=== PATIENT | female | born 2000 | race Caucasian/White ===

== ENCOUNTER 2025-04-04 19:26 | Inpatient (IN) | payer OTHER, SELFPAY ==
--- NOTE | ~2025-04-04 | CT_ITS ---
CLINICAL HISTORY: Right lower quadrant pain? Acute appendicitis CT abdomen and pelvis with contrast Comparison: None provided Findings: No consolidation or effusion. The liver, gallbladder, spleen, pancreas, kidneys and adrenal glands are normal in appearance. No bowel obstruction, pneumoperitoneum, or pneumatosis. The appendix is hyperemic and enlarged measuring 8 mm in diameter. There is periappendiceal stranding. The appendix is located in the right lower quadrant, series 3, image 60. Uterus and adnexa are normal. Urinary bladder is decompressed. No ascites. No evidence of abscess. The bones are intact. IMPRESSION: Acute uncomplicated appendicitis. This document has been electronically signed by: Ted Patel MD on 04/04/2025 22:07:57
--- NOTE | 2025-04-04 19:32 | ED.ABDPAIN ---
HPI - Abdominal Pain General Stated Complaint: right lwr abd pain Course Course Course Narrative: This is an RME performed by Patt Perrin CNP: Additional HPI, ROS, PE not included below will be deferred to primary provider. patient is a 24-year-old female who presents emergency department for evaluation, she had onset of right lower quadrant abdominal pain yesterday but is progressively worse today and more intense and 05:00. has associated nausea but no vomiting. Denies pelvic pain, abnormal vaginal discharge or bleeding. Denies dysuria, urinary frequency/ urgency /hesitancy Plan: Serum labs, urinalysis, hCG
[2025-04-04 19:35] VITALS: BP 155/99; PULSE 113; RESP 20; TEMP 36.1; O2SAT 98; BMI 33.3
[2025-04-04 19:57] LABS: Hematocrit 39.4 % (37.0-47.0); Hemoglobin 13.2 g/dl (12.0-16.0); Imm Gran Abs Auto 0.04 X10*3/uL (0.00-0.03); Imm Gran Pct Auto 0.3 % (0.0-0.4); Lymphocytes Absolute Auto 4.5 X10*3/uL (1.2-4.9); MANUAL DIFF FLAG SCAN; Mean Corpuscular HGB Conc 33.5 g/dl (31.0-35.0); Mean Corpuscular Hemoglobin 28.8 pg (27.0-33.0); Mean Corpuscular Volume 85.8 fL (80.0-98.0); NRBC Abs Auto 0.000 X10*3/uL (0.0-0.012); NRBC Pct Auto 0.0 /100WBC (0.0-0.2); Platelet Count 341 X10*3/uL (160-400); Red Blood Count 4.59 X10*6/uL (4.20-5.50); SCAN SMEAR FLAG 1; White Blood Count 16.0 X10*3/uL (4.8-10.8)
[2025-04-04 20:10] VITALS: BP 129/65; PULSE 85; RESP 16; TEMP 36.9; O2SAT 98
[2025-04-04 20:18] LABS: Alanine Aminotransferase 17 U/L (0-31); Albumin Level 4.7 g/dL (3.5-5.0); Alkaline Phosphatase 70 U/L (39-117); Anion Gap 12 (12-20); Aspartate Amino Transferase 21 U/L (5-31); Blood Urea Nitrogen 11 mg/dL (9-16); Calcium 9.2 mg/dL (8.4-10.2); Carbon Dioxide 23 mmol/L (22-29); Chloride 109 mmol/L (96-108); Creatinine Clr Calc Pharmacy 102.4; Estimated Glomerular Filt Rate > 60; Lipase 16 U/L (8-78); Potassium 3.9 mmol/L (3.3-5.1); Sodium 140 mmol/L (135-145); Total Protein 7.3 g/dL (6.5-8.0)
[2025-04-04 20:34] LABS: Appearance Urine Clear; Glucose Urine UA Negative (Negative); PH 7.0 (5.0-9.0); Specific Gravity - Urine >= 1.030 (1.005-1.025)
[2025-04-04] MEDS: iohexoL 350 MG/ML 100 ML INFUS..BTL 85 ML IV (21:24)
--- NOTE | 2025-04-04 22:13 | ED_ITS ---
HPI - Abdominal Pain General Chief Complaint: Abdominal Pain Stated Complaint: right lwr abd pain Time Seen by Provider: 04/04/25 20:32 Source: patient Mode of arrival: ambulatory Limitations: no limitations History of Present Illness ED Provider: HPI narrative: Patient with no significant past medical history apparently noticed right-sided pain since yesterday evening gradual onset got worse earlier today especially while coming to the ER bumps on the road made the pain worse had some nausea no vomiting no fever no chills no urinary symptoms no history of gallstones no history of similar pain in the past no history of ovarian cyst Related Data Allergies Allergy/AdvReac Type Severity Reaction Status Date / Time No Known Allergies Allergy Verified 04/04/25 19:37 Review of Systems Review of Systems Yes all other systems are reviewed and are negative [facility] Social History Social History Smoked in Last 30 Days: No Use of substances other than those prescribed or required for medical reasons: No Advance Directives: No Advance Directives Information Provided: No Do you have a plan to hurt others: No Plan Physical Exam ED Vital Signs: Vital Signs - 24 hr 04/04/25 19:35 04/04/25 20:10 Temperature 97.0 F 98.4 F Pulse Rate 113 H 85 Respiratory Rate 20 16 Blood Pressure 155/99 H 129/65 Pulse Oximetry 98 98 Oxygen Delivery Method Room Air Room Air BMI result Body Mass Index 33.3 Appearance: Alert. Oriented X3. No acute distress. Eyes: No pallor or icterus ENT: Pharynx normal. Oral Mucosa moist Neck: Normal inspection. Neck supple. CVS: Normal heart rate and rhythm. Pulses normal. Respiratory: No respiratory distress. Equal air entry bilateral, no wheezing/rales/rhonchi Abdomen: Soft and deep tenderness right lower quadrant with guarding no rebound tenderness. Bowel sounds are present, no mass palpable, no CVA tenderness Skin: Skin warm and dry. Normal skin color. Normal skin turgor. Extremities: No lower extremity edema. No calf tenderness Neuro: Oriented X 3. No motor deficit. Medical Decision Making Medical Decision Making [facility] Narrative: Patient has acute onset of right lower quadrant pain clinically appendicitis CT scan confirmed uncomplicated appendicitis case discussed surgeon Dr. Roth will plan for surgery in a.m. patient's will be given IV Zosyn pain control and IV fluids Differential Diagnosis Differential Diagnoses: The differential diagnosis associated with the presentation includes Acute appendicitis/cholecystitis/diverticulitis/ovarian cyst Admission/Observation Consideration of admission/observation: Escalation of care including admission/observation considered Consult Healthcare Provider Management of the patient was discussed with: [employer] Lab Data MDM Lab Attestation statement: I reviewed the patient's lab results. 04/04/25 19:52 04/04/25 19:52 Labs: Lab Results 04/04/25 04/04/25 Range/Units 19:52 20:22 WBC 16.0 H (4.8-10.8) X10*3/uL RBC 4.59 (4.20-5.50) X10*6/uL Hgb 13.2 (12.0-16.0) g/dl Hct 39.4 (37.0-47.0) % MCV 85.8 (80.0-98.0) fL MCH 28.8 (27.0-33.0) pg MCHC 33.5 (31.0-35.0) g/dl RDW 14.4 (11.0-16.0) % Plt Count 341 (160-400) X10*3/uL MPV 10.9 (9.4-12.3) fL Immature Gran % (Auto) 0.3 (0.0-0.4) % Neut % (Auto) 60.5 (45-73) % Lymph % (Auto) 28.3 (20-40) % [place] % (Auto) 9.4 (2-11) % Eos % (Auto) 1.2 (0-4) % Baso % (Auto) 0.3 (0-2) % Lymph # (Auto) 4.5 (1.2-4.9) X10*3/uL [place] # (Auto) 1.5 H (0.1-1.2) X10*3/uL Eos # (Auto) 0.2 (0.0-0.4) X10*3/uL Baso # (Auto) 0.0 (0.0-0.2) X10*3/uL Abs Immat Gran (auto) 0.04 H (0.00-0.03) X10*3/uL Absolute Neuts (auto) 9.7 H (2.0-8.3) x10*3/uL Absolute Nucleated RBC 0.000 (0.0-0.012) X10*3/uL Nucleated RBC % (auto) 0.0 (0.0-0.2) /100WBC Smear Tech's Comments VERIFIED Sodium 140 (135-145) mmol/L Potassium 3.9 (3.3-5.1) mmol/L Chloride 109 H (96-108) mmol/L Carbon Dioxide 23 (22-29) mmol/L Anion Gap 12 (12-20) BUN 11 (9-16) mg/dL Creatinine 0.74 (0.5-1.4) mg/dL Estim Creat Clear Calc 102.4 Estimated GFR > 60 Random Glucose 98 (60-115) mg/dL Calcium 9.2 (8.4-10.2) mg/dL Total Bilirubin 0.4 (0.0-1.0) mg/dL AST 21 (5-31) U/L ALT 17 (0-31) U/L Alkaline Phosphatase 70 (39-117) U/L C-Reactive Protein 1.62 H (< or = 0.50) mg/dL Total Protein 7.3 (6.5-8.0) g/dL Albumin 4.7 (3.5-5.0) g/dL Lipase 16 (8-78) U/L Beta HCG, Quant < 2 mIU/mL Urine Color Yellow Urine Appearance Clear Urine pH 7.0 (5.0-9.0) Ur Specific [place] >= 1.030 H (1.005-1.025) Urine Protein Negative (Neg-Trace) mg/dL Urine Glucose (UA) Negative (Negative) mg/dL Urine Ketones Trace (Negative) mg/dL Urine Blood Negative (Negative) Urine Nitrite Negative (Negative) Ur Leukocyte Esterase Negative (Negative) Radiology Impression Discussion of test interpretation with radiology: I have reviewed the radiologist's reading. Radiologist Impression: [address] [address] [address] Scan Report Signed with Beth Patient: Meryl Shannon MR#: [id number] : 2000 Acct:[id number] Age/Sex: 24 / F ADM Date: 04/04/25 Loc: .ED Attending Dr: Ordering Physician: Chan Salinas MD Date of Service: 04/04/25 Procedure(s): CT abdomen pelvis w IV con Accession Number(s): [id number] cc: Larissa Suarez DO; Chan Salinas MD~ Report Number: [id number]: Total DLP = 603.00 mGy-cm ADDENDUMThis document has been electronically signed by: Ted Patel MD on 04/04/2025 22:07:57 ADDENDUM: This report was discussed with Chan Salinas on Apr 04, 2025 22:10:00 EDT. This document has been electronically signed by: Madelaine Viera on 04/04/2025 22:10:23 Addendum Dictated By: Ted Patel MD Addendum Signed By: <Electronically signed by Ted Patel MD in [place]> 04/04/252210 Addendum Cosigned By: DD/ /29/2206 TD/TT: 04/04/2510/29/2209 CLINICAL HISTORY: Right lower quadrant pain? Acute appendicitis CT abdomen and pelvis with contrast Comparison: None provided Findings: No consolidation or effusion. The liver, gallbladder, spleen, pancreas, kidneys and adrenal glands are normal in appearance. No bowel obstruction, pneumoperitoneum, or pneumatosis. The appendix is hyperemic and enlarged measuring 8 mm in diameter. There is periappendiceal stranding. The appendix is located in the right lower quadrant, series 3, image 60. Uterus and adnexa are normal. Urinary bladder is decompressed. No ascites. No evidence of abscess. The bones are intact. IMPRESSION: Acute uncomplicated appendicitis. This document has been electronically signed by: Ted Patel MD on 04/04/2025 22:07:57 Medications Administered Generic Name Dose Route Start Last Admin Trade Name Freq PRN Reason Stop Dose Admin Sodium Chloride 1,000 mls @ 100 mls/hr 04/04/25 22:45 04/04/25 23:32 Ns IVCONT 100 mls/hr .Q10H DOMINGUEZ Administration Sodium Chloride 3 ml 04/05/25 00:00 04/05/25 00:09 0.9 % Sodium Chloride Flush 3 Ml Syringe IVFLUSH Not Given QSHIFT DOMINGUEZ Discontinued Medications Generic Name Dose Route Start Last Admin Trade Name Freddy PRN Reason Stop Dose Admin Sodium Chloride 1,000 mls @ 999 mls/hr 04/04/25 20:47 04/04/25 23:32 Ns IV 04/04/25 21:47 Infused .Q1H1M ONE Infusion Piperacillin Sod/Tazobactam 50 mls @ 100 mls/hr 04/04/25 22:10 04/04/25 23:05 Sod 3.375 gm/ Sodium Chloride IV 04/04/25 22:39 Infused ONCE ONE Infusion Iohexol 85 ml 04/04/25 21:24 04/04/25 21:24 Iohexol 350 Mg/Ml 100 Ml Infus..Btl IV 04/04/25 21:25 85 ml ONCE ONE Administration Morphine Sulfate 4 mg 04/04/25 20:47 04/04/25 21:34 Morphine Sulfate 4 Mg/Ml Cartridge IVPUSH 04/04/25 20:48 4 mg ONCE ONE Administration Protocol Ondansetron HCl 4 mg 04/04/25 20:47 04/04/25 21:34 Ondansetron Hcl 4 Mg/2 Ml Vial IVPUSH 04/04/25 20:48 4 mg ONCE ONE Administration Discharge Plan Discharge Clinical Impression: Acute appendicitis Patient Disposition: Admitted As Inpatient
--- NOTE | 2025-04-04 22:33 | PC.NURSE ---
per MD no blood cultures.
[2025-04-05] VITALS (13 sets, daily range): BP systolic 92–122; BP diastolic 46–69; PULSE 64–93; RESP 0–18; TEMP 36.1–36.7; O2SAT 95–100; BMI 38.0
--- NOTE | 2025-04-05 05:15 | PC.NURSE ---
report given to overflow bren Paul. pt awaiting transport.
--- NOTE | 2025-04-05 05:47 | PC.NURSE ---
Patient transferred to overflow bed 2 at 0530 with asphalt plant laborer at bedside. Patient reports being NPO since midnight. IVF infusing. Offers no complaints. All needs in reach.
--- NOTE | 2025-04-05 07:34 | P.HPGS_ITS ---
History of Present Illness History of Present Illness Date of Service: 04/05/25 Chief complaint: abdominal pain Narrative: Meryl Shannon is a generally healthy 24 year old female presenting to the Ed with a 1 day history of RLQ abdominal pain. Patient states the pain started as a dull pain that continuing to increase throughout the day. States the pain was a 9 out of 10 and worsened with movement. States she has associated nausea and decreased appetite. Denies fever, chills, vomiting, constipation, diarrhea. Denies history of similar symptoms before. She had a CT scan, showing a dilated appendix with associated inflammatory changes. No evidence of abscess or perforation. WBC is increased, at 16. Patient was started on IV fluids, zosyn, and was made NPO. Pain is currently better controlled, states improvement in pain and nausea after medications. Pain now 7/10 but still feels uncomfortable. She denies any current medications, denies history of surgery. Admits to marijuana and nicotine vape use. Denies alcohol or other recreational drug use. Review of Systems Review of Systems: Yes all other systems are reviewed and are negative [facility] Social History Social History Household Members: Significant Other Housing: House Do you presently have visiting nurse or other home services: No Patient Tobacco Use Status: Never used Tobacco Smoked in Last 30 Days: No e-Cigarette/Vaping Use: Currently Using Frequency of e-Cigarette/Vaping Use: 10-15 puffs from vape a day Patient Interested in Nicotine Replacement: No Patient Given Instructions on How to Stop Smoking: No (not interested) Second Hand Smoke Exposure: No Use of substances other than those prescribed or required for medical reasons: No Have you been hit, kicked, punched, or otherwise hurt by someone within the past year? If so, by whom?: No Do you feel safe in your current relationship?: Yes Is there a partner from a previous relationship who is making you feel unsafe now?: No Are you made to feel afraid or neglected: No Advance Directives: No Advance Directives Information Provided: No Do you have a plan to hurt others: No Plan Recently lost weight without trying: No How much weight loss: Not applicable Eating poorly because of decreased appetite: No Nutrition screen score: 0 Nutrition Risks: No Nutritional Risk Patient : No : No Poor oral hygiene: No Meds Allergies Allergy/AdvReac Type Severity Reaction Status Date / Time No Known Allergies Allergy Verified 04/04/25 19:37 Active Medications: Current Medications Acetaminophen (Acetaminophen 325 Mg Tablet) 650 mg PO Q6H PRN PRN Reason: Pain, Mild 1-3,fever,headache Calcium Carbonate (Calcium Carbonate 750 Mg Tab.Chew) 750 mg PO Q4H PRN PRN Reason: Heartburn Sodium Chloride (Ns) 1,000 mls @ 100 mls/hr IVCONT .Q10H [facility] Last Admin: 04/04/25 23:32 Dose: 100 mls/hr Magnesium Hydroxide (Milk Of Magnesia 30 Ml Oral.Susp) 30 ml PO DAILY PRN PRN Reason: Constipation Melatonin (Melatonin 3 Mg Tablet) 6 mg PO BEDTIME PRN PRN Reason: Insomnia Morphine Sulfate (Morphine Sulfate 10 Mg/Ml Cartridge) 4 mg IVPUSH Q4H PRN; Protocol PRN Reason: Pain, Severe (Pain Scale 7-10) Last Admin: 04/05/25 01:37 Dose: 4 mg Ondansetron HCl (Ondansetron Hcl 4 Mg/2 Ml Vial) 4 mg IVPUSH Q8H PRN PRN Reason: Nausea and Vomiting Last Admin: 04/05/25 06:18 Dose: 4 mg Sodium Chloride (0.9 % Sodium Chloride Flush 3 Ml Syringe) [facility] Last Admin: 04/05/25 00:09 Dose: Not Given Home Medications ?Medication ?Instructions ?Recorded ?Confirmed ?Last Taken ?Type acetaminophen 500 mg tablet 1,000 mg PO Q6H PRN Pain 0 04/05/25 04/05/25 04/04/25 History 500 mg Physical Exam Vital Signs: Vital Signs: Last Vital Signs Temp 97.1 F 04/05/25 05:41 Pulse 82 04/05/25 05:41 Resp 16 04/05/25 05:41 BP 111/55 L 04/05/25 05:41 Pulse Ox 100 04/05/25 05:41 O2 Del Method Room Air 04/05/25 05:41 BMI result Body Mass Index 33.3 Const: General: no acute distress; No comfortable Orientation/consciousness: patient oriented x3 Resp: Effort & Inspection: normal respiratory effort and able to speak in complete sentences GI: Inspection: Yes normal to inspection and No distended Palpation (GI): Soft to palpation, not firm, Tenderness to palpation present (GI) in the RLQ, at McBurney's point, with rebound tenderness and Rovsing's sign positive, no guarding and not rigid Neuro: General: patient oriented x3 Results Results Labs: Short CBC 04/04/25 Range/Units 19:52 WBC 16.0 H (4.8-10.8) X10*3/uL Hgb 13.2 (12.0-16.0) g/dl Hct 39.4 (37.0-47.0) % Plt Count 341 (160-400) X10*3/uL BMP 04/04/25 19:52 Sodium 140 Potassium 3.9 Chloride 109 H Carbon Dioxide 23 BUN 11 Creatinine 0.74 Calcium 9.2 Liver Function 04/04/25 Range/Units 19:52 Total Bilirubin 0.4 (0.0-1.0) mg/dL AST 21 (5-31) U/L ALT 17 (0-31) U/L Alkaline Phosphatase 70 (39-117) U/L Albumin 4.7 (3.5-5.0) g/dL Urine 04/04/25 Range/Units 20:22 Urine Color Yellow Urine Appearance Clear Urine pH 7.0 (5.0-9.0) Ur Specific [place] >= 1.030 H (1.005-1.025) Urine Protein Negative (Neg-Trace) mg/dL Urine Glucose (UA) Negative (Negative) mg/dL Assessment and Plan (1) Acute appendicitis: Qualifiers: Acute appendicitis type: with localized peritonitis Appendicitis abscess presence: without abscess Appendicitis gangrene presence: without gangrene Appendicitis perforation presence: without perforation Qualified Code(s): K35.30 - Acute appendicitis with localized peritonitis, without perforation or gangrene Status: Acute Plan 24 year old generally healthy female presenting to the ED with a 1 day history of RLQ abdominal pain that increased throughout the day. Patient has associated nausea and decreased appetite. ON imaging, patient was found to have a dilated appendix with associated inflammatory changes cosnistent with acute appendicitis. Labs showing leukocytosis 16. On exam the patient is very tender in the RLQ, has positive rosvings and rebound tenderness. Abdomen remains soft. patient was admitted to the surgical service and was started on IV zosyn, fluids. Pain and nausea are controlled at this time. We discussed options for treatment including conservative treatment with antibiotics and monitoring vs laparascopic appendectomy possible open. Patient agreeable to proceed with surgical intervention, understands risks including bleeding, infection, injury to surrounding organs. patient has been added to the OR schedule for this afternoon. Quality Stroke Does the patient have a stroke diagnosis?: No VTE Prior VTE?: No VTE Risk Level:: Surgical - low VTE Device Contraindication: Treatment Not Indicated VTE Drug Contraindication: Treatment Not Indicated Procedures Date of Service Date of Service: 04/05/25
--- NOTE | 2025-04-05 08:34 | PC.NURSE ---
Report given to short stay surgery. Pt remains NPO at this time.
--- NOTE | 2025-04-05 08:38 | PM.HPGS ---
History of Present Illness History of Present Illness Date of Service: 04/05/25 Chief complaint: abdominal pain Narrative: Meryl Shannon is a 24 year old female here in the ER because of right lower quadrant pain. She says this started about 2 days ago. She denies describes that this was severe yesterday during the day. This has however persisted. She describes some nausea but no vomiting She denies any diarrhea or constipation. She denies any similar episodes in the past. She denies urinary complaints. She has an unremarkable medical history although she admits to vaping as well as marijuana use. Review of Systems Constitutional: Constitutional: Denies chills and Denies fever(s) Cardiovascular: Cardiovascular: Denies chest pain, Denies dyspnea and Denies dyspnea on exertion Respiratory: Respiratory: Denies cough, Denies dyspnea and Denies dyspnea on exertion Gastrointestinal: Gastrointestinal: Denies hematochezia and Denies change in bowel habits Genitourinary: Genitourinary: Denies hematuria Musculoskeletal: Musculoskeletal: Denies back pain and Denies limited range of motion Neurologic: Denies focal weakness and Denies convulsions Psychiatric: Psychiatric: Denies depression and Denies mood swings [facility] Social History Social History Household Members: Significant Other Housing: House Do you presently have visiting nurse or other home services: No Patient Tobacco Use Status: Never used Tobacco Smoked in Last 30 Days: No e-Cigarette/Vaping Use: Currently Using Frequency of e-Cigarette/Vaping Use: 10 times per day Patient Interested in Nicotine Replacement: No Patient Given Instructions on How to Stop Smoking: No (not interested) Second Hand Smoke Exposure: No Use of substances other than those prescribed or required for medical reasons: Yes Have you been hit, kicked, punched, or otherwise hurt by someone within the past year? If so, by whom?: No Do you feel safe in your current relationship?: Yes Is there a partner from a previous relationship who is making you feel unsafe now?: No Are you made to feel afraid or neglected: No Are you DNR?: No Advance Directives: No Advance Directives Information Provided: No Do you have a plan to hurt others: No Plan Recently lost weight without trying: No How much weight loss: Not applicable Eating poorly because of decreased appetite: No Nutrition screen score: 0 Nutrition Risks: No Nutritional Risk Patient : No (hcg neg) : No Poor oral hygiene: No Meds Allergies Allergy/AdvReac Type Severity Reaction Status Date / Time No Known Allergies Allergy Verified 04/04/25 19:37 Active Medications: Current Medications Acetaminophen (Acetaminophen 325 Mg Tablet) 650 mg PO Q6H PRN PRN Reason: Pain, Mild 1-3,fever,headache Calcium Carbonate (Calcium Carbonate 750 Mg Tab.Chew) 750 mg PO Q4H PRN PRN Reason: Heartburn Sodium Chloride (Ns) 1,000 mls @ 100 mls/hr IVCONT .Q10H [facility] Last Admin: 04/04/25 23:32 Dose: 100 mls/hr Magnesium Hydroxide (Milk Of Magnesia 30 Ml Oral.Susp) 30 ml PO DAILY PRN PRN Reason: Constipation Melatonin (Melatonin 3 Mg Tablet) 6 mg PO BEDTIME PRN PRN Reason: Insomnia Morphine Sulfate (Morphine Sulfate 10 Mg/Ml Cartridge) 4 mg IVPUSH Q4H PRN; Protocol PRN Reason: Pain, Severe (Pain Scale 7-10) Last Admin: 04/05/25 01:37 Dose: 4 mg Ondansetron HCl (Ondansetron Hcl 4 Mg/2 Ml Vial) 4 mg IVPUSH Q8H PRN PRN Reason: Nausea and Vomiting Last Admin: 04/05/25 06:18 Dose: 4 mg Sodium Chloride (0.9 % Sodium Chloride Flush 3 Ml Syringe) 3 ml IVFLUSH QSHIFT [facility] Last Admin: 04/05/25 08:07 Dose: Not Given Home Medications ?Medication ?Instructions ?Recorded ?Confirmed ?Last Taken ?Type acetaminophen 500 mg tablet 1,000 mg PO Q6H PRN Pain 04/05/25 04/05/25 04/04/25 History 500 mg ibuprofen 04/05/25 04/05/25 04/04/25 History Physical Exam Vital Signs: Vital Signs: Last Vital Signs Temp 97.1 F 04/05/25 05:41 Pulse 82 04/05/25 05:41 Resp 16 04/05/25 05:41 BP 111/55 L 04/05/25 05:41 Pulse Ox 100 04/05/25 05:41 O2 Del Method Room Air 04/05/25 05:41 BMI result Body Mass Index 33.3 Const: General: comfortable and no acute distress Orientation/consciousness: patient oriented x3 Neck: Neck: Yes no lymphadenopathy Resp: Auscultation: clear to auscultation bilaterally Cardio: Rhythm: regular rhythm GI: Other: Mild tenderness lower quadrant Palpation (GI): Soft to palpation, Tenderness to palpation present (GI) and no guarding Neuro: General: patient oriented x3 Results Results Labs: Short CBC 04/04/25 Range/Units 19:52 WBC 16.0 H (4.8-10.8) X10*3/uL Hgb 13.2 (12.0-16.0) g/dl Hct 39.4 (37.0-47.0) % Plt Count 341 (160-400) X10*3/uL BMP 04/04/25 19:52 Sodium 140 Potassium 3.9 Chloride 109 H Carbon Dioxide 23 BUN 11 Creatinine 0.74 Calcium 9.2 Liver Function 04/04/25 Range/Units 19:52 Total Bilirubin 0.4 (0.0-1.0) mg/dL AST 21 (5-31) U/L ALT 17 (0-31) U/L Alkaline Phosphatase 70 (39-117) U/L Albumin 4.7 (3.5-5.0) g/dL Urine 04/04/25 Range/Units 20:22 Urine Color Yellow Urine Appearance Clear Urine pH 7.0 (5.0-9.0) Ur Specific [place] >= 1.030 H (1.005-1.025) Urine Protein Negative (Neg-Trace) mg/dL Urine Glucose (UA) Negative (Negative) mg/dL Abdomen CT scan report/results: report reviewed and image reviewed CT scan - pelvis: report reviewed and image reviewed Additional studies: CLINICAL HISTORY: Right lower quadrant pain? Acute appendicitis CT abdomen and pelvis with contrast Comparison: None provided Findings: No consolidation or effusion. The liver, gallbladder, spleen, pancreas, kidneys and adrenal glands are normal in appearance. No bowel obstruction, pneumoperitoneum, or pneumatosis. The appendix is hyperemic and enlarged measuring 8 mm in diameter. There is periappendiceal stranding. The appendix is located in the right lower quadrant, series 3, image 60. Uterus and adnexa are normal. Urinary bladder is decompressed. No ascites. No evidence of abscess. The bones are intact. IMPRESSION: Acute uncomplicated appendicitis. Assessment and Plan (1) Acute appendicitis: Status: Acute 24 year female, otherwise healthy, with right lower quadrant pain and tenderness. I have reviewed her CAT scan and there is note of some inflammatory prompt drainage changes in her appendix consistent with acute appendicitis. I had a long discussion with her about the option of proceeding with appendectomy. I discussed the technique of laparoscopic appendectomy possible open appendectomy. I explained the risks including but not limited to bleeding, infections, injury to other organs including bowel and the urinary tract, staple line leak, as well as the benefits and alternatives I explained to her what to expect postoperatively. She wants to proceed with laparoscopic appendectomy and possible open. She understands the option of IV antibiotic treatment alone but she prefers to proceed with the appendectomy. Quality Stroke Does the patient have a stroke diagnosis?: No VTE Prior VTE?: No VTE Risk Level:: Surgical - low VTE Device Contraindication: Treatment Not Indicated VTE Drug Contraindication: Treatment Not Indicated Procedures Date of Service Date of Service: 04/05/25
--- NOTE | 2025-04-05 09:03 | PHA.MEDREC ---
Addendum entered by Chris Powell RPh 04/05/25 11:09: MED REC REVIEWED BY [facility] Original Note: Pharmacy Consult ? Medication Reconciliation Pharmacy has completed the medication reconciliation. Spoke with pt and she confirmed she is only taking Tylenol 500mg tabs as 1-2 as needed for pain and states she last took one (500mg) yesterday.
--- NOTE | 2025-04-05 13:23 | HO.ANESPROP2 ---
HPI - Anesthesia Eval Consult details Narrative: yayo ANTON Active Problems Active Problems: All Active Problems Acute appendicitis (Acute) Family History Family history of problems with anesthesia: No Surgical History History of Problems with Anesthesia: No Social History Social History Household Members: Significant Other Housing: House Do you presently have visiting nurse or other home services: No Patient Tobacco Use Status: Never used Tobacco Smoked in Last 30 Days: No e-Cigarette/Vaping Use: Currently Using Frequency of e-Cigarette/Vaping Use: 10 times per day Patient Interested in Nicotine Replacement: No Patient Given Instructions on How to Stop Smoking: No (not interested) Second Hand Smoke Exposure: No Use of substances other than those prescribed or required for medical reasons: Yes Have you been hit, kicked, punched, or otherwise hurt by someone within the past year? If so, by whom?: No Do you feel safe in your current relationship?: Yes Is there a partner from a previous relationship who is making you feel unsafe now?: No Are you made to feel afraid or neglected: No Are you DNR?: No Advance Directives: No Advance Directives Information Provided: No Do you have a plan to hurt others: No Plan Recently lost weight without trying: No How much weight loss: Not applicable Eating poorly because of decreased appetite: No Nutrition screen score: 0 Nutrition Risks: No Nutritional Risk Patient : No (hcg neg) : No Poor oral hygiene: No Meds Allergies Allergy/AdvReac Type Severity Reaction Status Date / Time No Known Allergies Allergy Verified 04/04/25 19:37 Active Medications: Current Medications Acetaminophen (Acetaminophen 325 Mg Tablet) 650 mg PO Q6H PRN PRN Reason: Pain, Mild 1-3,fever,headache Calcium Carbonate (Calcium Carbonate 750 Mg Tab.Chew) 750 mg PO Q4H PRN PRN Reason: Heartburn Sodium Chloride (Ns) 1,000 mls @ 100 mls/hr IVCONT .Q10H [facility] Last Admin: 04/05/25 08:50 Dose: 100 mls/hr Magnesium Hydroxide (Milk Of Magnesia 30 Ml Oral.Susp) 30 ml PO DAILY PRN PRN Reason: Constipation Melatonin (Melatonin 3 Mg Tablet) 6 mg PO BEDTIME PRN PRN Reason: Insomnia Morphine Sulfate (Morphine Sulfate 10 Mg/Ml Cartridge) 4 mg IVPUSH Q4H PRN; Protocol PRN Reason: Pain, Severe (Pain Scale 7-10) Last Admin: 04/05/25 01:37 Dose: 4 mg Ondansetron HCl (Ondansetron Hcl 4 Mg/2 Ml Vial) 4 mg IVPUSH Q8H PRN PRN Reason: Nausea and Vomiting Last Admin: 04/05/25 06:18 Dose: 4 mg Sodium Chloride (0.9 % Sodium Chloride Flush 3 Ml Syringe) 3 ml IVFLUSH QSHIFT [facility] Last Admin: 04/05/25 08:07 Dose: Not Given Home Medications ?Medication ?Instructions ?Recorded ?Confirmed ?Last Taken ?Type acetaminophen 500 mg tablet 1,000 mg PO Q6H PRN Pain 04/05/25 04/05/25 04/04/25 History 500 mg ibuprofen 04/05/25 04/05/25 04/04/25 History Exam Height,Weight and Vital Signs: Height 4 ft 11 in Weight 85.4 kg Last Vital Signs Temp 98.1 F 04/05/25 11:53 Pulse 74 04/05/25 11:53 Resp 16 04/05/25 11:53 BP 114/58 L 04/05/25 11:53 Pulse Ox 97 04/05/25 11:53 O2 Del Method Room Air 04/05/25 11:53 Pertinent Lab Results Pertinent Lab Results: Laboratory Tests 04/04/25 04/04/25 19:52 20:22 WBC 16.0 H RBC 4.59 Hgb 13.2 Hct 39.4 MCV 85.8 MCH 28.8 MCHC 33.5 RDW 14.4 Plt Count 341 MPV 10.9 Immature Gran % (Auto) 0.3 Neut % (Auto) 60.5 Lymph % (Auto) 28.3 Green % (Auto) 9.4 Eos % (Auto) 1.2 Baso % (Auto) 0.3 Lymph # (Auto) 4.5 Green # (Auto) 1.5 H Eos # (Auto) 0.2 Baso # (Auto) 0.0 Abs Immat Gran (auto) 0.04 H Absolute Neuts (auto) 9.7 H Absolute Nucleated RBC 0.000 Nucleated RBC % (auto) 0.0 Smear Tech's Comments VERIFIED Sodium 140 Potassium 3.9 Chloride 109 H Carbon Dioxide 23 Anion Gap 12 BUN 11 Creatinine 0.74 Estim Creat Clear Calc 102.4 Estimated GFR > 60 Random Glucose 98 Calcium 9.2 Total Bilirubin 0.4 AST 21 ALT 17 Alkaline Phosphatase 70 C-Reactive Protein 1.62 H Total Protein 7.3 Albumin 4.7 Lipase 16 Beta HCG, Quant < 2 Urine Color Yellow Urine Appearance Clear Urine pH 7.0 Ur Specific [place] >= 1.030 H Urine Protein Negative Urine Glucose (UA) Negative Urine Ketones Trace Urine Blood Negative Urine Nitrite Negative Ur Leukocyte Esterase Negative Airway Mallampati Class: II TM Dist: >3cm Neck ROM: Full Heart: rrr Lungs: cta Assessment and Plan Assessment Anesthesia Assessment: Anesthesia Plan Discussed and Chart Reviewed Final Anesthetic Review Family History of Problems with Anesthesia: No History of Problems with Anesthesia: No NPO: Yes ASA Class: II Final Preanesthetic Review: No Changes in Pt Med Stat, Meds/Allgs Chart Reviewed, Consent Obtained/Reviewed and Anes Risks/Benef Reviewed Patient Risk: Low Procedure Risk: Intermediate Anesthetic Plan Anesthetic Plan: GA Disposition: Standard PACU
--- NOTE | 2025-04-05 14:46 | MHC.CM.PN ---
Female 24 years DX Appendicitis: Appendectomy today She lives with her S.O. She is independent with all functional mobility PCP Larissa Suarez No HCP on file DP home self care. S.O. will provide transportation home
--- NOTE | 2025-04-05 15:00 | P.OP_ITS ---
Operative Note Operative Note Date of Service: 04/05/25 Narrative: Preop diagnosis: Acute appendicitis Postop diagnosis: The same Procedure: Laparoscopic appendectomy Surgeon: Raman Wei MD captain's assistant: ARIEL Dejesus The patient is a 24 year female with right lower quadrant pain and tenderness for about 36 hours. Workup in the ER suggested acute appendicitis. She understood the technique of the planned procedure. She was aware of the risks, benefits, and alternatives and had given consent. She was brought to the operating room. She was placed supine under general anesthesia via endotracheal tube. The abdomen was prepped and draped usual fashion. A Parisi catheter has been inserted earlier. A surgical time-out had been done. I made a short infraumbilical with a blade 15. This was carried down through the full-thickness of the skin and thick subcutaneous fat down to the fascia. We had to go through very thick amounts of subcutaneous fat in view of her morbid obesity. The fascia was incised. The peritoneum was entered. Through this incision a Bagley port was introduced. Pneumoperitoneum was introduced to a pressure of 15 mm Hg. From here on the rest of the procedure was done under vision with the 10 mm 30 degree laparoscope. With laparoscopic visualization I inserted a 10 mm port in the left lower quadrant through a small stab incision. A 5 mm port was introduced via a small incision in the suprapubic margin. Graspers were placed through the working ports. The patient was placed in a head up and [id number] position. The cecum was seen and the appendix was utilized. The small bowel loops were reflected away from the right lower quadrant to expose the entire cecum and appendix. The appendix seen, and this was very erythematous consistent with the acute appendicitis. There was no perforation. The grasper was then applied at the mid appendix to put this on stretch. I placed the appendix on stretch to define the base. I used the [place] dissector to define the base and create a mesenteric window. I used an Endo-GAYATRI 30 mm stapler and positioned this at the base of the appendix. The appendix was therefore transected. I divided the attached mesoappendix with serial application of the LigaSure including on the appendiceal artery. The appendix was retrieved through an endobag through the left lower quadrant incision. I reinserted all ports and re-insufflated. The appendiceal stump was examined laparoscopically. There was note of good hemostasis. The staple line appeared intact. I observed all 4 quadrants. There was no other pathology seen. There was no evidence of any bowel injury. Once hemostasis was confirmed, I pulled the omentum to the right lower quadrant. I then desufflated through the port sites. I removed all ports under vision with the laparoscope. The umbilical port was removed last. The fascia of the umbilical incision was closed with a [id number] Polysorb 0 stitch. Skin closure was achieved on all incisions using Polysorb 4-0 subcuticular running sutures. All incisions were infiltrated with Marcaine 0.5% for postop analgesia. Dressings were applied. The procedure was completed. The patient tolerated the procedure well. There were no immediate complications. Initial and final counts of sponges and instruments were correct. Estimated blood loss was about less than 10 cc. The patient was extubated without difficulty and transferred to the recovery room with stable vital signs.
[2025-04-05] MEDS: 0.9 % Sodium Chloride Flush 3 ML SYRINGE IVFLUSH (16:24)
--- NOTE | 2025-04-05 17:55 | PM.EVENT ---
Event Note Date of Service: 04/05/25 Event Note: Seen postop Underwent laparoscopic appendectomy earlier Has good pain control but is nauseous Abdomen is soft Stable vital signs Pain management Control post up nausea/vomiting Diet as tolerated Possible home tomorrow Family updated Time Spent With Patient Time: Total time managing care of this patient today ____ minutes.
[2025-04-05] MEDS: oxyCODONE HCl Immed Release 5 MG TABLET PO (20:19)
[2025-04-06] MEDS: oxyCODONE HCl Immed Release 5 MG TABLET PO ×2 (01:36→07:02)
[2025-04-06 03:11] VITALS: BP 103/54; PULSE 90; RESP 16; TEMP 36.4; O2SAT 99
--- NOTE | 2025-04-06 06:56 | PM.PNGS ---
Subjective Subjective Date of Service: 04/06/25 <Ruiz Whiteside - Last Filed: 04/06/25 08:49> 04/06/25 <Jameson Dejesus PA-C - Last Filed: 04/06/25 08:50> 04/06/25 <Raman Wei MD - Last Filed: 04/06/25 08:29> Interval history: Patient reports 6/10 abdominal pain but last dose of oxycodone >6 hours prior. She reports some nausea, but no vomiting since immediately after post-op. She has been hesitant to trial any PO intake so far, but she is ready to try eating this morning. No bowel movement yet but some flatus and reports frequently OOB to urinate. <Ruiz Whiteside - Last Filed: 04/06/25 08:49> Physical Exam Vital Signs: Vital Signs: Last Vital Signs Temp 97.5 F 04/06/25 03:11 Pulse 90 04/06/25 03:11 Resp 16 04/06/25 03:11 BP 103/54 L 04/06/25 03:11 Pulse Ox 99 04/06/25 03:11 O2 Del Method Room Air 04/06/25 03:11 O2 Flow Rate 2 04/05/25 15:35 FiO2 40 04/05/25 15:35 BMI result Body Mass Index 38.0 <Ruiz Whiteside Last Filed: 04/06/25 08:49> Resp: Effort & Inspection: normal respiratory effort and able to speak in complete sentences <Ruiz Whiteside Last Filed: 04/06/25 08:49> Auscultation: clear to auscultation bilaterally <Ruiz Whiteside Last Filed: 04/06/25 08:49> Cardio: Rate: regular rate <Ruiz Whiteside - Last Filed: 04/06/25 08:49> Rhythm: regular rhythm <Ruiz Whiteside Last Filed: 04/06/25 08:49> Heart sounds: S1 normal heart sound present and S2 normal heart sound present <Ruiz Whiteside Last Filed: 04/06/25 08:49> GI: Other: Dressings are clean, dry, intact without evidence of strikethrough bleeding. <Ruiz Whiteside Last Filed: 04/06/25 08:49> Palpation (GI): Soft to palpation and Tenderness to palpation present (GI) <Ruiz Whiteside - Last Filed: 04/06/25 08:49> Auscultation: normal bowel sounds <Ruiz Whiteside - Last Filed: 04/06/25 08:49> Extrem: General: Yes no pedal edema <Ruiz Whiteside - Last Filed: 04/06/25 08:49> Objective Data Active Medications Acetaminophen (Acetaminophen 325 Mg Tablet) 650 mg PO Q6H PRN PRN Reason: Pain, Mild 1-3,fever,headache Calcium Carbonate (Calcium Carbonate 750 Mg Tab.Chew) 750 mg PO Q4H PRN PRN Reason: Heartburn Sodium Chloride (Ns) 1,000 mls @ 100 mls/hr IVCONT .Q10H [facility] Last Admin: 04/06/25 06:28 Dose: 100 mls/hr Documented By: AG Magnesium Hydroxide (Milk Of Magnesia 30 Ml Oral.Susp) 30 ml PO DAILY PRN PRN Reason: Constipation Melatonin (Melatonin 3 Mg Tablet) 6 mg PO BEDTIME PRN PRN Reason: Insomnia Morphine Sulfate (Morphine Sulfate 4 Mg/Ml Cartridge) 3 mg IVPUSH Q3H PRN; Protocol PRN Reason: Pain, Severe (Pain Scale 7-10) Ondansetron HCl (Ondansetron Hcl 4 Mg/2 Ml Vial) 4 mg IVPUSH Q8H PRN PRN Reason: Nausea and Vomiting Last Admin: 04/05/25 13:47 Dose: 4 mg Documented By: LATRICE Oxycodone HCl (Oxycodone Hcl Immed Release 5 Mg Tablet) 5 mg PO Q6H PRN PRN Reason: Pain, Moderate(Pain Scale 4-6) Last Admin: 04/06/25 01:36 Dose: 5 mg Documented By: AG Sodium Chloride (0.9 % Sodium Chloride Flush 3 Ml Syringe) 3 ml IVFLUSH [facility] Last Admin: 04/06/25 00:12 Dose: Not Given Documented By: AG Non-Admin Reason: IV Running <Ruiz Whiteside - Last Filed: 04/06/25 08:49> Labs CBC & Chem 7: 04/04/25 19:52 04/04/25 19:52 <Ruiz Whiteside - Last Filed: 04/06/25 08:49> Procedures Date of Service Date of Service: 04/06/25 <Ruiz Whiteside - Last Filed: 04/06/25 08:49> 04/06/25 <Jameson Dejesus PA-C - Last Filed: 04/06/25 08:50> 04/06/25 <Raman Wei MD - Last Filed: 04/06/25 08:29> Progress Note: A&P Assessment and plan (1) S/P laparoscopic appendectomy: Status: Acute <Ruiz Whiteside - Last Filed: 04/06/25 08:49> Assessment and Plan: Says she feels much better this morning Wants to be discharged Good pain control Abdomen is soft and benign Okay to DC home today I have reinforced with the discharge instructions I will see her in the office for follow-up Patient is seen and examined independently <Raman Wei MD - Last Filed: 04/06/25 08:29> Assessment and Plan: Meryl Shannon is a 23y.o. female on POD#1 s/p laparoscopic appendectomy. She had notable anxiety going into the OR and an episode of vomiting immediately after post-op, but has since been tolerating post-op well. Pain has been adequately controlled on medication. Dressings are clean, dry, and intact without evidence of strike through bleeding. VSS. Using spirometry. OOB/ambulating independently to bathroom for toileting. Will trial PO food this morning, if tolerating well can consider discharge today. <Ruiz Whiteside - Last Filed: 04/06/25 08:49> Meryl Shannon is a 23y.o. female on POD#1 s/p laparoscopic appendectomy. She had notable anxiety going into the OR and an episode of vomiting immediately after post-op, but has since been tolerating post-op well. Pain has been adequately controlled on medication. Dressings are clean, dry, and intact without evidence of strike through bleeding. VSS. Using spirometry. OOB/ambulating independently to bathroom for toileting. Will trial PO food this morning, if tolerating well can consider discharge today. Patient seen and evaluated with with attending physician Dr. Wei, patient feels ready to be discharged. <Jameson Dejesus PA-C - Last Filed: 04/06/25 08:50> Time Spent With Patient Time: Total time managing care of this patient today ____ minutes. <Ruiz Whiteside - Last Filed: 04/06/25 08:49> Quality Stroke Does the patient have a stroke diagnosis?: No <Ruiz Whiteside - Last Filed: 04/06/25 08:49> VTE Prior VTE?: No <Ruiz Whiteside - Last Filed: 04/06/25 08:49> VTE Risk Level:: Surgical - low <Ruiz Whiteside - Last Filed: 04/06/25 08:49> VTE Device Contraindication: Treatment Not Indicated <Ruiz Whiteside - Last Filed: 04/06/25 08:49> VTE Drug Contraindication: Treatment Not Indicated <Ruiz Whiteside - Last Filed: 04/06/25 08:49>
[2025-04-06 07:17] VITALS: BP 113/59; PULSE 64; RESP 18; TEMP 36.3; O2SAT 95
--- NOTE | 2025-04-06 08:52 | HO.POSTANES ---
Post Anesthesia Evaluation Post Anesthesia Evaluation Date of Service: 04/06/25 Vital Signs: Vital Signs Temp Pulse Resp BP Pulse Ox O2 Del Method 04/06/25 07:17 97.4 F 64 18 113/59 L 95 Room Air 04/06/25 03:11 97.5 F 90 16 103/54 L 99 Room Air Anesthesia: General Endotracheal-GETA and General Mental Status: Awake Pain Control: Satisfactory Nausea/Vomiting: None Hydration: Adequate Anesthesia-Related Issues: No Anes. Related Issues
--- NOTE | 2025-04-06 09:05 | MHC.CM.PN ---
PT TO DC HOME TODAY WITH NO SERVICES VIA PRIVATE TRANSPORT
--- NOTE | 2025-04-06 10:30 | P.DS_ITS ---
DS: Providers Provider Date of Service: 04/06/25 Date of admission: 04/04/25 22:45 Date of discharge: 04/06/25 Primary care physician: Larissa Suarez DO Admitting clinician: Raman Wei Attending physician on discharge: Raman Wei DS: Diagnosis Discharge Diagnosis (1) S/P laparoscopic appendectomy: Status: Acute DS: Summary Hospital Course Hospital Course: Admission HPI: Meryl Shannon is a generally healthy 24 year old female presenting to the Ed with a 1 day history of RLQ abdominal pain. Patient states the pain started as a dull pain that continuing to increase throughout the day. States the pain was a 9 out of 10 and worsened with movement. States she has associated nausea and decreased appetite. Denies fever, chills, vomiting, constipation, diarrhea. Denies history of similar symptoms before. She had a CT scan, showing a dilated appendix with associated inflammatory changes. No evidence of abscess or perforation. WBC is increased, at 16. Patient was started on IV fluids, zosyn, and was made NPO. Pain is currently better controlled, states improvement in pain and nausea after medications. Pain now 7/10 but still feels uncomfortable. She denies any current medications, denies history of surgery. Admits to marijuana and nicotine vape use. Denies alcohol or other recreational drug use. Hospital Course: The pateitn was admitte to the surgical service. We proceeded with surgical managment via laparoscopic appendectomy on 04/05, patient tolerated the procedure well, the intraoperative victoria was removed without complication and she was transferred to the [facility] floor for further observation and management. She had one episode of vomiting while in the PACU and complained of some nausea overnight. her diet was resumed and on the morning of 04/06 she trialed regular diet for which she tolerated well. Her pain was well controlled on oral medications, and she was ambulating within the room. On exam her abdomen was soft and benign, aside from some incisional site tenderness. The dressings remained in place without strikethrough. Patient was discharged in stable condition, she will follow up in the office in 2 weeks Status at Discharge Functional status at discharge: independent ambulation Overall status at discharge: patient is progressing back to baseline Time Attestation Discharge Coordination Time (in mins): 30 Quality: Safe Use of Opioids Does Pt have an Active Cancer Diagnosis on the Problem List?: No Quality: Stroke Does the patient have a stroke diagnosis?: No Physical Exam Vital Signs: Vital Signs: Last Vital Signs Temp 97.4 F 04/06/25 07:17 Pulse 64 04/06/25 07:17 Resp 18 04/06/25 07:17 BP 113/59 L 04/06/25 07:17 Pulse Ox 95 04/06/25 07:17 O2 Del Method Room Air 04/06/25 07:17 O2 Flow Rate 2 04/05/25 15:35 FiO2 40 04/05/25 15:35 BMI result Body Mass Index 38.0 Const: General: comfortable and no acute distress Orientation/con sciousness: patient oriented x3 Resp: Effort & Inspection: normal respiratory effort and able to speak in complete sentences GI: Other: incision site dressings in place, dry Inspection: No distended Palpation (GI): Soft to palpation, not firm, Tenderness to palpation present (GI) (incisional), no guarding and not rigid Neuro: General: patient oriented x3 DS: Data Data Completed and Pending Pending studies at discharge: Pending at discharge 04/05/25 15:18 Surgical [PTH] Routine Discharge Plan Discharge Anticipated Discharge Date/Time: 04/06/25 08:14 Patient Disposition: Home, Self-Care Discharge Diagnosis: s/p laparoscopic appendectomy Referrals: Larissa Suarez DO [Primary Care Provider, Internal Medicine] - 1 Week Discharge Medications: New docusate sodium [Colace] 100 mg capsule 100 mg PO BID Qty: 30 0RF oxycodone 5 mg tablet 5 mg PO Q6H PRN (Reason: pain (scale score 7-10)) Qty: 16 0RF Rx Instructions: Partial Fill upon patient request. Continued acetaminophen 500 mg Tablet 1,000 mg PO Q6H PRN (Reason: Pain) ibuprofen Discharge Orders: Discharge Order (Routine); Ordered 04/06/25 Ordered By: Jameson Dejesus Diet: Advance to usual diet Activity on Discharge: No heavy lifting Stand Alone Forms: Patient Portal Discharge page Print Language: Citizen Of [place] Activity Restrictions/Additional Instructions: If your incision site is sore, you may apply ice to the area for short periods of time (no more than 20 minutes at a time, followed by 20 minutes off). You were prescribed oxycodone to assist with pain management as needed. You can additionally use OTC ibuprofen or acetaminophen as needed for pain. You can remove the dressings at home, they do not need to be redressed. Steri strips can remain in place and will likely fall on their own or in the shower. No heavy lifting >15-20 pounds No strenuous activity. Do not use creams, lotion, ointment on the incision sites You will follow up with Dr. Wei in the office in 2 week, you can call the office to schedule the appointment ) Please reach out to the office or be seen at the emergency department if you develop: -Fever >101.5 -Increasing pain or swelling of the area -Increased bleeding from the incision site or the incision begins to separate -If you are concerned for incision site infection such as redness, warmth, discharge. Some yellow/pink tinged discharge is normal -You develop nausea or vomiting Care Plan Goals: return to baseline level of health Health Concerns: s/p laparoscopic appendectomy post op pain Plan of Treatment: pain control follow up in the office in 2 weeks Assessment: patient doing well Discharge Date/Time: 04/06/25 09:16
== END 2025-04-06 09:16 | disposition home or self-care (01) | DRG 399 ==
LOC: HO.ED 22:18 → HO.EDOVER 23:03 → HO.S3 04-05 07:44
PROVIDERS: Nurse Practitioner Family; Surgery; Admitting Provider Surgery; Emergency Provider Internal Medicine; PCP Internal Medicine; Visit Provider Surgery
PROC: 0DTJ4ZZ Resection of Appendix, Percutaneous Endoscopic Approach (ICD-10-PCS; CPT 44970; principal; 2025-04-05 13:20)
DX: K35.80 Unspecified acute appendicitis (principal)
CPT/HCPCS: 36415; 74177; 80053; 81003; 83690; 84702; 85025; 86140; 88304; 99285; J1171; J1885; J2003; J2250; J2270; J2405; J2543; J2704; J2765; J2795; J3010; Q9967

== ENCOUNTER → 2025-04-04 20:48 | Outpatient (BNV) | payer SELFPAY | PROVIDERS: Emergency Provider Internal Medicine; PCP Internal Medicine; Visit Provider Radiology Diagnostic Radiology | DX: K35.80 Unspecified acute appendicitis (principal) | CPT/HCPCS: 74177 ==

== ENCOUNTER → 2025-04-04 22:45 | Outpatient (BNV) | payer SELFPAY | PROVIDERS: Admitting Provider Surgery; Emergency Provider Internal Medicine; PCP Internal Medicine; Visit Provider Surgery | DX: K35.80 Unspecified acute appendicitis (principal) | CPT/HCPCS: 44970; 99024; 99223; 99499 ==

== ENCOUNTER 2025-04-19 13:22 | Outpatient (AMB) | payer SELFPAY ==
[2025-04-19 13:28] VITALS: BP 136/78; PULSE 85
--- NOTE | 2025-04-19 13:28 | A.OFFVIS_ITS ---
Vital Signs 04/19/25 13:28 Weight 170 lb BP 136/78 Blood Pressure Location Rt brachial Position Sitting Pulse 85 Intake Visit Reasons: s/p appendectomy 04-05 Intake Note: Patient here s/p Laparoscopic appendectomy. Reports incision healing well. Patient c/o: no concerns. Steri strips fell off. No longer taking rx pain meds. Surgery: 04-05-2025 Sports Therapist Required: No Accompanied by: Self / Same As Patient Allergies No Known Allergies Allergy (Verified 04/19/25 13:30) HPI HPI s/p appendectomy 04-05: Details: [age] year old female here for a postop visit. She underwent laparoscopic appendectomy as an inpatient for acute appendicitis last 04/05/2025. She tolerated procedure well and was discharged on postop day 1. She feels well overall and denies significant complaints. [facility] Surgical History S/P laparoscopic appendectomy (04/05/25) Social History Household Members: Significant Other Housing: House Do you presently have visiting nurse or other home services: No Comment: tolerable Patient Tobacco Use Status: Never used Tobacco e-Cigarette/Vaping Use: Currently Using Second Hand Smoke Exposure: No service: No Review of Systems Const Denies chills and Denies fever(s) Card Denies dyspnea on exertion Resp Denies dyspnea on exertion GI Denies abdominal pain, Denies diarrhea and Denies vomiting Physical Exam Vital Signs: Last Vital Signs Pulse 85 04/19/25 13:28 BP 136/78 04/19/25 13:28 Assessment & Plan Assessment & Plan (1) S/P laparoscopic appendectomy: Onset Date: 04/05/25 Comment: Raman Garcia Code(s): Z90.49 - Acquired absence of other specified parts of digestive tract Category: Surgical Plan: She is doing very well after laparoscopic appendectomy last 04/05/2025. All incisions are well healed. I advised her to avoid lifting anything more than 20 lb for 2 more weeks. She can otherwise follow up on a p.r.n. basis. Her path report shows acute append icitis. Coding Level of Care Code Global (53430) Diagnoses S/P laparoscopic appendectomy Z90.49
== END 2025-04-19 13:39 | disposition home or self-care (01) ==
LOC: HO.HGS 13:23
PROVIDERS: PCP Internal Medicine; Visit Provider Surgery
DX: Z90.49 Acquired absence of other specified parts of digestive tract (principal)
CPT/HCPCS: 99024

== ENCOUNTER → 2025-04-19 13:22 | Outpatient (BNVA) | payer OTHER, SELFPAY | PROVIDERS: PCP Internal Medicine; Visit Provider Surgery | DX: Z48.815 Encounter for surgical aftercare following surgery on the digestive system (principal); Z90.49 Acquired absence of other specified parts of digestive tract; Z98.890 Other specified postprocedural states | CPT/HCPCS: 99212 ==